=== PATIENT | male | born 1985 | race American Indian/Alaskan Native ===

== ENCOUNTER 2019-01-05 11:43 | Emergency (ER) | payer OTHER ==
[2019-01-05 12:04] VITALS: BP 147/82
[2019-01-05] MEDS ORDERED: IBUPROFEN PO ONE ×2 (12:06→12:07)
--- NOTE | 2019-01-05 12:06 | Emergency Department Report ---
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
--- NOTE | 2019-01-05 12:36 | XRay Report ---
RIGHT KNEE RADIOGRAPHS INDICATION: Fall, right knee pain and edema. COMPARISON: None similar at this institution. FINDINGS: AP, lateral and oblique right knee radiographs demonstrate distal femoral eliane, anchored by 2 threaded screws distally. Few adjacent surgical clips also seen. Partially imaged distal femoral old healed deformity/hyperostotic changes. Extrinsic zipper artifact also seen. Lower patellar pole enthesophytes. Intact knee articulation. CONCLUSION: No acute right knee radiographic abnormality with distal femoral old deformities and postsurgical changes noted, as described. Thank you for the opportunity to participate in this patient's care.
--- NOTE | 2019-01-05 15:08 | Emergency Department Report ---
ED General Adult HPI - General Chief complaint: Extremity Injury, Lower Stated complaint: RT KNEE PAIN Time Seen by Provider: 01/05/19 12:03 Source: patient Mode of arrival: Wheelchair Limitations: No Limitations - History of Present Illness Initial comments: Patient presents to the emergency department with a chief complaint of right knee pain. Patient states that he slipped onto his right knee yesterday evening. Patient denies hitting his head or loss of consciousness. -: Sudden Location: lower extremity Radiation: non-radiation Severity scale (0 -10): 4 Quality: sharp Consistency: constant Improves with: rest Worsens with: movement Associated Symptoms: denies other symptoms Treatments Prior to Arrival: none - Related Data Previous Rx's Medication Instructions Recorded Last Taken Type Ibuprofen [Motrin] 800 mg PO Q8HR PRN #24 tablet 01/05/19 Unknown Rx Allergies Allergy/AdvReac Type Severity Reaction Status Date / Time No Known Allergies Allergy Unverified 01/05/19 12:04 ED Review of Systems ROS: Stated complaint: RT KNEE PAIN Other details as noted in HPI Constitutional: denies: chills, fever Eyes: denies: eye pain, eye discharge, vision change ENT: denies: ear pain, throat pain Respiratory: denies: cough, shortness of breath, wheezing Cardiovascular: denies: chest pain, palpitations Endocrine: no symptoms reported Gastrointestinal: denies: abdominal pain, nausea, diarrhea Genitourinary: denies: urgency, dysuria Musculoskeletal: denies: back pain, joint swelling, arthralgia Skin: denies: rash, lesions Neurological: denies: headache, weakness, paresthesias Psychiatric: denies: anxiety, depression Hematological/Lymphatic: denies: easy bleeding, easy bruising ED Past Medical Hx - Past Medical History Previous Medical History?: No - Surgical History Past Surgical History?: No - Social History Smoking Status: Never Smoker Substance Use Type: None - Medications Home Medications: Home Medications Medication Instructions Recorded Confirmed Last Taken Type Ibuprofen [Motrin] 800 mg PO Q8HR PRN #24 tablet 01/05/19 Unknown Rx ED Physical Exam - General Limitations: No Limitations General appearance: alert, in no apparent distress - Head Head exam: Present: atraumatic, normocephalic - Eye Eye exam: Present: normal appearance, PERRL, EOMI - ENT ENT exam: Present: mucous membranes moist - Neck Neck exam: Present: normal inspection - Cardiovascular Cardiovascular Exam: Absent: systolic murmur, diastolic murmur, rubs, gallop - Extremities Exam Extremities exam: Present: normal inspection, other (tender to palpation of the right patella; no tenderness to palpation along the lateral or medial aspect of the knee) - Back Exam Back exam: Present: normal inspection - Neurological Exam Neurological exam: Present: alert, oriented X3, CN II-XII intact. Absent: motor sensory deficit - Psychiatric Psychiatric exam: Present: normal affect, normal mood - Skin Skin exam: Present: warm, dry, intact, normal color. Absent: rash ED Course Vital Signs 01/05/19 01/05/19 12:02 12:12 Temperature 98.1 F Pulse Rate 101 H Respiratory 20 18 Rate Blood Pressure 147/82 O2 Sat by Pulse 100 Oximetry ED Medical Decision Making - Radiology Data Radiology results: report reviewed - Medical Decision Making Results discussed with patient Critical care attestation.: If time is entered above; I have spent that time in minutes in the direct care of this critically ill patient, excluding procedure time. ED Disposition Clinical Impression: Knee pain, right Disposition: DC-01 TO HOME OR SELFCARE Is pt being admited?: No Does the pt Need Aspirin: No Condition: Stable Instructions: Knee Pain (ED) Additional Instructions: Return if worse Prescriptions: Ibuprofen [Motrin] 800 mg PO Q8HR PRN #24 tablet PRN Reason: pain Referrals: BERNARDA VILLATORO MD [Primary Care Provider] - 3-5 Days [facility] [Provider Group] - 3-5 Days [facility] [Provider Group] - 3-5 Days [facility] [Outside] - 3-5 Days Time of Disposition: 15:07
== END 2019-01-05 15:19 | disposition home or self-care (01) ==
LOC: ED 11:43
DX: M25.561 Pain in right knee (principal)